=== PATIENT | male | born 1945 | race Hispanic/Latino ===

== ENCOUNTER 2017-12-29 08:44 | Day surgery (SDC) | payer MEDICARE ==
[2015-04-25 15:41] VITALS: BMI 28.3
[2017-12-29 09:07] VITALS: TEMP 98
[2017-12-29] MEDS ORDERED: Propofol 10 mg/ml Inj (20 ML) ONE ×2 (11:13→11:25)
[2017-12-29] MEDS ORDERED: Etomidate 20 mg/10ml Inj IV ONE (11:25)
[2017-12-29] MEDS ORDERED: Midazolam 2 MG/2 ML VIAL ONE (11:26)
[2017-12-29] MEDS ORDERED: Sodium Chloride 0.9% 1,000 ML IV SCH (12:00)
[2017-12-29 13:25] VITALS: BP 112/72; PULSE 67; RESP 16; O2SAT 98
== END 2017-12-29 13:31 | disposition home or self-care (01) ==
LOC: ENDO 08:44
PROVIDERS: ATTEND Internal Medicine Gastroenterology
DX: Z12.11 Encounter for screening for malignant neoplasm of colon (principal); D12.2 Benign neoplasm of ascending colon; K57.30 Diverticulosis of large intestine without perforation or abscess without bleeding; K64.8 Other hemorrhoids
CPT/HCPCS: 45380; 88305; J2001; J2250; J2704; J3010; J7030; J7040

== ENCOUNTER 2018-03-16 11:17 | Day surgery (SDC) | payer MEDICARE ==
[2015-04-25 15:41] VITALS: BMI 28.3
[2018-03-16] MEDS ORDERED: Sodium Chloride 0.9% 1,000 ML IV SCH (11:45)
[2018-03-16 12:01] VITALS: TEMP 98
[2018-03-16] MEDS ORDERED: Etomidate 20 mg/10ml Inj IV ONE (12:16)
[2018-03-16 14:06] VITALS: BP 129/72; PULSE 55; RESP 16; O2SAT 98
== END 2018-03-16 14:00 | disposition home or self-care (01) ==
LOC: ENDO 11:17
PROVIDERS: ATTEND Internal Medicine Gastroenterology
DX: D50.9 Iron deficiency anemia, unspecified (principal); K25.9 Gastric ulcer, unspecified as acute or chronic, without hemorrhage or perforation; K29.50 Unspecified chronic gastritis without bleeding; K31.9 Disease of stomach and duodenum, unspecified; R13.10 Dysphagia, unspecified; I10 Essential (primary) hypertension
CPT/HCPCS: 43239; 88305; 88342; J2001; J7030; J7040

== ENCOUNTER 2018-06-08 10:09 | Day surgery (SDC) | payer MEDICARE | END 2018-06-08 15:14 | disposition home or self-care (01) | LOC: ENDO 10:09 | DX: K25.9 Gastric ulcer, unspecified as acute or chronic, without hemorrhage or perforation (principal) ==